=== PATIENT | male | born 1945 | race Caucasian/White ===

== ENCOUNTER → 2020-12-27 | Outpatient (CLI) | payer MEDICARE, OTHER | LOC: CT 09:07 | DX: Z01.818 Encounter for other preprocedural examination (principal); R31.29 Other microscopic hematuria; K80.20 Calculus of gallbladder without cholecystitis without obstruction; N40.0 Benign prostatic hyperplasia without lower urinary tract symptoms; N28.1 Cyst of kidney, acquired | CPT/HCPCS: 36415; 82565; 93005; Q9963; Q9967 ==

== ENCOUNTER → 2022-02-12 | Outpatient (CLI) | payer MEDICARE, OTHER | LOC: KOH-I 02-05 09:00 | DX: M50.321 Other cervical disc degeneration at C4-C5 level (principal) | CPT/HCPCS: 72141 ==